=== PATIENT | female | born 1990 | race African-American/Black ===

== ENCOUNTER 2016-11-16 17:46 | Emergency (ER) | payer OTHER ==
[~2016-11-16] VITALS: Ht 170.2 cm; Wt 86.2 kg
[~2016-11-16 17:46] MED LIST: AMOXICILLIN875 MG PO; BIRTH CONTROL; COMPLETENATE T1 EACH PO; DENIES; IBUPROFEN 800800 MG PO; NOHOMEMEDICATIONS; NORCO 5-325 TA1 EACH PO; SILVADENE20 GM TP; VICODIN 5-5001 EACH PO
[2016-11-16] MEDS ORDERED: KEFLEX500 MG PO (18:10)
[2016-11-16] MEDS ORDERED: PENICILLIN V P500 MG PO (18:10)
[2016-11-16 18:19] VITALS: BP 156/96
== END 2016-11-16 18:20 | disposition home or self-care (01) ==
LOC: ER 17:46
DX: J02.0 Streptococcal pharyngitis (principal); F10.99 Alcohol use, unspecified with unspecified alcohol-induced disorder